=== PATIENT | male | born 1975 | race African-American/Black ===

== ENCOUNTER 2017-08-28 12:42 | Inpatient (IN) | payer OTHER ==
[~2017-08-28] VITALS: Ht 188 cm; Wt 91.2 kg
[2017-08-28 13:23] LABS: BASOPHIL % 0.6 % (0-2); PLATELET COUNT 255 x10^3mcL (130-400); RED CELL DISTRIBUTION WIDTH 13.5 % (11.5-14.5)
[2017-08-28 14:02] LABS: CALCIUM 8.9 mg/dL (8.5-10.1); CARBON DIOXIDE 28.6 mmol/L (21-32); CHLORIDE SERUM 102 mmol/L (98-107); CREATININE SERUM 0.6 mg/dL (0.7-1.3); GFR1 > 60 mL/min; GLUCOSE SERUM 83 mg/dL (74-106); POTASSIUM SERUM 4.2 mmol/L (3.5-5.1); SODIUM SERUM 138 mmol/L (136-145)
[2017-08-28 14:03] LABS: ALKALINE PHOSPHATASE 114 U/L (46-116); ALT/SGPT 40 U/L (16-63); AST/SGOT 20 U/L (15-37); BILIRUBIN TOTAL 0.24 mg/dL (0.20-1.00)
[2017-08-28 14:10] LABS: TOTAL PROTEIN, SERUM 8.6 g/dL (6.4-8.2)
[2017-08-28 14:11] LABS: UA SPECIFIC GRAVITY <=1.005 (1.005-1.035); microscopic required? YES; urine erythrocyte 1+ (NEGATIVE)
[2017-08-28] MEDS ORDERED: DSS250 MG GT (15:42)
[2017-08-28] MEDS ORDERED: TEGRETOL200 MG GT (15:43)
[2017-08-28] MEDS ORDERED: PHE20L GT (15:44)
[2017-08-28] MEDS ORDERED: KEPPRA500 MG GT (15:45)
[2017-08-28] MEDS ORDERED: PROTONIX40 MG GT (15:46)
[2017-08-28] MEDS ORDERED: MIRALAX17 GM/Dose GT (15:47)
[2017-08-28] MEDS ORDERED: ACIDOPHILUS LA1 EACH GT (15:48)
[2017-08-28] MEDS ORDERED: CRANBERRY450 M1 GT (15:49)
[2017-08-28 16:23] LABS: CHOLESTEROL/HDL RATIO 2.9; MAGNESIUM 2.3 mg/dL (1.8-2.4); PHOSPHOROUS 3.5 mg/dL (2.5-4.9)
[2017-08-28 16:30] LABS: T3 TOTAL 1.02 ng/mL
[2017-08-28 16:35] LABS: FREE T4 0.98 ng/dL (0.76-1.46); FREE THYROXINE INDEX 2.6 ug/dL (1.4-4.5); T4(THYROXINE) 8.1 ug/dL (4.7-13.3)
[2017-08-28 16:57] VITALS: BP 94/58
[2017-08-28 17:23] VITALS: BP 94/58
[2017-08-28 21:23] VITALS: BP 102/66
[2017-08-29 06:01] VITALS: BP 124/68
[2017-08-29 06:33] LABS: BASOPHIL % 0.5 % (0-2); PLATELET COUNT 243 x10^3mcL (130-400); RED CELL DISTRIBUTION WIDTH 13.8 % (11.5-14.5)
[2017-08-29 06:39] LABS: CALCIUM 8.7 mg/dL (8.5-10.1); CHLORIDE SERUM 109 mmol/L (98-107); CREATININE SERUM 0.7 mg/dL (0.7-1.3); GFR1 > 60 mL/min; GLUCOSE SERUM 88 mg/dL (74-106); POTASSIUM SERUM 4.6 mmol/L (3.5-5.1); SODIUM SERUM 141 mmol/L (136-145)
[2017-08-29 09:35] VITALS: BP 107/81
[2017-08-29 14:13] VITALS: BP 122/77
[2017-08-29 17:12] VITALS: BP 140/72
[2017-08-29 21:14] VITALS: BP 129/69
[2017-08-30 05:47] VITALS: BP 149/83
[2017-08-30 06:48] LABS: BASOPHIL % 0.5 % (0-2); PLATELET COUNT 246 x10^3mcL (130-400); RED CELL DISTRIBUTION WIDTH 13.1 % (11.5-14.5)
[2017-08-30 06:54] LABS: CALCIUM 8.5 mg/dL (8.5-10.1); CARBON DIOXIDE 25.7 mmol/L (21-32); CHLORIDE SERUM 110 mmol/L (98-107); CREATININE SERUM 0.6 mg/dL (0.7-1.3); GFR1 > 60 mL/min; GLUCOSE SERUM 103 mg/dL (74-106); MAGNESIUM 2.2 mg/dL (1.8-2.4); PHOSPHOROUS 2.5 mg/dL (2.5-4.9); POTASSIUM SERUM 4.3 mmol/L (3.5-5.1); SODIUM SERUM 143 mmol/L (136-145)
[2017-08-30 10:26] VITALS: BP 115/67
[2017-08-30 18:30] VITALS: BP 131/75
[2017-08-30 20:11] VITALS: BP 128/72
[2017-08-30 21:55] VITALS: BP 128/72
[2017-08-31 05:50] VITALS: BP 143/72
[2017-08-31 07:19] LABS: BASOPHIL % 0.6 % (0-2); PLATELET COUNT 274 x10^3mcL (130-400); RED CELL DISTRIBUTION WIDTH 13.8 % (11.5-14.5)
[2017-08-31 07:30] LABS: CALCIUM 9.2 mg/dL (8.5-10.1); CARBON DIOXIDE 25.2 mmol/L (21-32); CHLORIDE SERUM 108 mmol/L (98-107); CREATININE SERUM 0.7 mg/dL (0.7-1.3); GFR1 > 60 mL/min; GLUCOSE SERUM 92 mg/dL (74-106); POTASSIUM SERUM 4.8 mmol/L (3.5-5.1); SODIUM SERUM 143 mmol/L (136-145)
[2017-08-31 10:15] VITALS: BP 155/80
[2017-08-31] MEDS ORDERED: GENTAMICIN80 MG/102 IV (14:34)
[2017-08-31 16:07] VITALS: BP 145/75
[2017-08-31 17:10] VITALS: BP 143/72
== END 2017-08-31 18:50 | DRG 689 ==
LOC: ED 12:42 → DU 15:15 → MU 08-30 11:03
PROVIDERS: Emergency Medicine; ADMIT Family Medicine
DX: N39.0 Urinary tract infection, site not specified (principal); N17.0 Acute kidney failure with tubular necrosis; L89.153 Pressure ulcer of sacral region, stage 3; F72 Severe intellectual disabilities; E44.0 Moderate protein-calorie malnutrition; B96.29 Other Escherichia coli [E. coli] as the cause of diseases classified elsewhere; B96.4 Proteus (mirabilis) (morganii) as the cause of diseases classified elsewhere; G40.909 Epilepsy, unspecified, not intractable, without status epilepticus; N20.0 Calculus of kidney; E87.8 Other disorders of electrolyte and fluid balance, not elsewhere classified; R31.9 Hematuria, unspecified; Z16.24 Resistance to multiple antibiotics; Z93.1 Gastrostomy status; Z93.0 Tracheostomy status; Z68.25 Body mass index [BMI] 25.0-25.9, adult
CPT/HCPCS: 83880; 84439; J1580; J1953; J2543; J3490; J7030; Q0092